=== PATIENT | female | born 1945 | race Caucasian/White ===

== ENCOUNTER 2017-02-10 12:27 | Outpatient (CLI) | payer MEDICARE, OTHER ==
[~2017-02-10] VITALS: Ht 162.6 cm; Wt 81.2 kg
[~2017-02-10 12:27] MED LIST: BNZ40T PO; CALC-250 PO; FURO-125 PO; GLIM2TAB PO; IPRA4AER IH; LEVO112T55 PO; METO-387 PO; POTA10CA43 PO; PRAV20TA3 PO; SERT50TA2 PO
== END 2017-02-10 12:30 ==
LOC: PREOP 12:27
PROVIDERS: ATTEND Otolaryngology Otolaryngology/Facial Plastic Surgery
DX: Z01.818 Encounter for other preprocedural examination (principal); K13.0 Diseases of lips

== ENCOUNTER 2017-02-13 05:54 | Day surgery (SDC) | payer MEDICARE, OTHER ==
[~2017-02-13] VITALS: Ht 162.6 cm; Wt 81.2 kg
[~2017-02-13 05:54] MED LIST changes: +METO-270 PO; -METO-387 PO
--- OUTSIDE RECORDS SUMMARY | 2017-02-13 05:57 | XMS REPORT ---
Author Author MARGARITA BAIRD Organization [employer] Address Unknown Phone Unavailable Care Team Providers Care Extruding Department Supervisor Name Role Phone MARGARITA BAIRD CP Unavailable Allergies No Known Allergies Problems Problem Type Condition ICD-9 Code Onset Dates Condition Status Assessment Dental examination V72.2 Active Medications No Known Medications Procedures Procedure Coding System Code Date Billing Notes on claim CPT-4 EC109 October 20, 2014 Results No Known Results Summary Purpose [employer] Submission
[2017-02-13] MEDS ORDERED: LACTATED RINGERS 1,000 ML IV PRN (06:15)
[2017-02-13] MEDS ORDERED: FAMOTIDINE 20MG/2ML IV (PEPCID) IV ONE (06:15)
[2017-02-13] MEDS ORDERED: ONDANSETRON 4 MG/2 ML (SDV) Z0FRAN IV ONE (06:15)
[2017-02-13] MEDS ORDERED: RT-ALBUTEROL SULF 2.5 MG/3 ML PRE-MIX VIAL INH ONE (06:15)
[2017-02-13] MEDS ORDERED: SCOPOLAMINE 1.5 MG (TRANSDERM-SCOP) PATCH TOP ONE (06:15)
[2017-02-13 06:20] VITALS: BP 158/74
--- NOTE | 2017-02-13 06:51 | Progress Note-Pre Operative ---
Pre-Operative Progress Note H&P Reviewed The H&P was reviewed, patient examined and no changes noted. Date Seen by Provider: Feb 13, 2017 Time Seen by Provider: 06:45 Date H&P Reviewed: Feb 13, 2017 Time H&P Reviewed: 06:45 Pre-Operative Diagnosis: Upeer And Lower Lip Lesions ADEBAYO HINOJOSA MD Feb 13, 2017 6:51 am
[2017-02-13] MEDS ORDERED: MUPIROCIN 2% OINT 22 GM (BACTROBAN) TUBE ONE (06:58)
[2017-02-13] MEDS ORDERED: LIDOCAINE/EPI 1%-1:200,000 (XYLOCAINE) 30 ML VIAL ONE (06:58)
[2017-02-13] MEDS ORDERED: MIDAZOLAM 2 MG/2 ML (VERSED) VIAL ONE (07:03)
[2017-02-13] MEDS ORDERED: SEVOFLURANE (ULTANE) 15 ML INHAL SOLN ONE ×3 (07:03→08:18)
[2017-02-13] MEDS ORDERED: LIDOCAINE PF 2% 5 ML (XYLOCAINE) VIAL ONE (07:03)
[2017-02-13] MEDS ORDERED: fentaNYL INJECTION 100 MCG/2 ML AMP ONE (07:03)
[2017-02-13] MEDS ORDERED: DEXAMETHASONE 10 MG/ML (DECADRON) 1 ML VIAL ONE (07:03)
[2017-02-13] MEDS ORDERED: ONDANSETRON 4 MG/2 ML (SDV) Z0FRAN ONE (07:03)
[2017-02-13] MEDS ORDERED: proPOfol 200 MG/20 ML (DIPRIVAN) VIAL IV ONE (07:03)
[2017-02-13] MEDS ORDERED: LACTATED RINGERS 1,000 ML IV ONE (07:03)
--- NOTE | 2017-02-13 08:17 | Progress Note-Post Operative ---
Post-Operative Progess Note Surgeon (s)/Foreclosure Home Inspector (s) Surgeon ADEBAYO HINOJOSA MD Foreclosure Home Inspector n/a Pre-Operative Diagnosis Upeer And Lower Lip Lesions Post-Operative Diagnosis same Post-Op Procedure Note Date of Procedure: Feb 13, 2017 Name of Procedure Performed: Excsions of Multiple Lip Lesions Description & Findings Description and Findings: n/a Anesthesia Type less than 25cc Estimated Blood Loss minimal Packing none. Specimen(s) collected/removed upper lip-basal cell lower lip early squamous cell all margins clear on frozen section ADEBAYO HINOJOSA MD Feb 13, 2017 8:17 am
[2017-02-13] MEDS ORDERED: ONDANSETRON 4 MG/2 ML (SDV) Z0FRAN IVP PRN (08:30)
[2017-02-13] MEDS ORDERED: morphine INJ 10 MG/ML 1ML (SYR OR VIAL) IVP PRN (08:30)
[2017-02-13] MEDS ORDERED: ACETAMINOPHEN 325 MG TABLET/CAPLET (TYLENOL) PO PRN (08:30)
[2017-02-13 09:10] VITALS: BP 122/58
[2017-02-13 09:40] VITALS: BP 121/58
[2017-02-13] MEDS ORDERED: TRAM50TA2 PO (09:43)
[2017-02-13 10:10] VITALS: BP 147/67
== END 2017-02-13 10:14 | disposition home or self-care (01) ==
LOC: SDC 05:54
PROVIDERS: ATTEND Otolaryngology Otolaryngology/Facial Plastic Surgery
DX: C44.01 Basal cell carcinoma of skin of lip (principal); C44.02 Squamous cell carcinoma of skin of lip; L85.9 Epidermal thickening, unspecified; I10 Essential (primary) hypertension; J44.9 Chronic obstructive pulmonary disease, unspecified; J45.909 Unspecified asthma, uncomplicated; G47.33 Obstructive sleep apnea (adult) (pediatric); F41.9 Anxiety disorder, unspecified; F32.9 Major depressive disorder, single episode, unspecified; Q61.3 Polycystic kidney, unspecified; Z79.899 Other long term (current) drug therapy
CPT/HCPCS: 87081; 88305; 88331; 88332; 93005; 94640

== ENCOUNTER 2018-10-19 10:30 | Outpatient (CLI) | payer MEDICARE, OTHER ==
[~2018-10-19] VITALS: Ht 162.6 cm; Wt 81.2 kg
[~2018-10-19 10:30] MED LIST changes: +BENA40TA5 PO; -BNZ40T PO; -METO-270 PO; +METO-387 PO; +TRAM50TA2 PO
== END 2018-10-19 10:55 | disposition home or self-care (01) ==
LOC: PREOP 10:30
PROVIDERS: ATTEND Surgery
DX: Z01.818 Encounter for other preprocedural examination (principal)

== ENCOUNTER 2018-10-21 08:03 | Day surgery (SDC) | payer MEDICARE, OTHER ==
[~2018-10-21] VITALS: Ht 162.6 cm; Wt 81.2 kg
[2018-10-21] MEDS ORDERED: NS IV 500 ML 500 ML IV PRN (08:44)
[2018-10-21] MEDS ORDERED: MIDAZOLAM 2 MG/2 ML (VERSED) VIAL IVP ONE (08:45)
[2018-10-21] MEDS ORDERED: fentaNYL INJECTION 100 MCG/2 ML AMP IVP ONE (08:45)
[2018-10-21] MEDS ORDERED: LIDOCAINE JELLY 2% 6 ML SYRINGE MM PRN (08:45)
[2018-10-21] MEDS ORDERED: NS IV 500 ML 500 ML ONE (08:46)
[2018-10-21 09:12] VITALS: BP 157/69
[2018-10-21] MEDS ORDERED: SCOPOLAMINE 1.5 MG (TRANSDERM-SCOP) PATCH ONE (09:17)
[2018-10-21] MEDS ORDERED: SCOPOLAMINE 1.5 MG (TRANSDERM-SCOP) PATCH TD ONE (09:30)
[2018-10-21] MEDS ORDERED: MIDAZOLAM 2 MG/2 ML (VERSED) VIAL ONE ×4 (10:05)
[2018-10-21] MEDS ORDERED: fentaNYL INJECTION 100 MCG/2 ML AMP ONE (10:05)
[2018-10-21] MEDS ORDERED: LIDOCAINE JELLY 2% 6 ML SYRINGE ONE (10:05)
--- NOTE | 2018-10-21 10:12 | Conscious Sedation/ASA ---
Conscious Sedation Pre-Proced Time 09:30 ASA Score 2 For ASA 3 and 4: Consider anesthesia and medical clearance. Also, for patients with a history of failed moderate sedation consider anesthesia. Airway Lungs Heart ASA score ASA 1: a normal healthy patient ASA 2: a patient with a mild systemic disease (mid diabetes, controlled hypertension, obesity ASA 3: a patient with a severe systemic disease that limits activity (angina , COPD, prior Myocardial infarction) ASA 4: a patient with an incapacitating disease that is a constant threat to life (CHF, renal failure) ASA 5: a moribund patient not expected to survive 24 hrs. (ruptured aneurysm) ASA 6: a declared brain- patient whose organs are being harvested. For emergent operations, add the letter E after the classification Mallampati Classification Grade 2 Sedation Plan Analgesia, Amnesia, Plan communicated to team members, Discussed options with patient/fam, Discussed risks with patient/fam The patient is an appropriate candidate to undergo the planned procedure, sedation, and anesthesia. The patient immediately re-assessed prior to indication. ANTHONY CARIAS MD October 21, 2018 10:12
--- NOTE | 2018-10-21 10:13 | Progress Note-Pre Operative ---
Pre-Operative Progress Note H&P Reviewed The H&P was reviewed, patient examined and no changes noted. Date Seen by Provider: October 21, 2018 Time Seen by Provider: : Date H&P Reviewed: October 21, 2018 Time H&P Reviewed: : Pre-Operative Diagnosis: rectal bleed, family hx colon ca ANTHONY CARIAS MD October 21, 2018 10:13
[2018-10-21] MEDS ORDERED: HYDROcodone/APAP 5 MG/325 MG (LORTAB) TAB PO PRN (10:15)
[2018-10-21] MEDS ORDERED: morphine INJ 10 MG/ML 1ML (SYR OR VIAL) IV PRN (10:15)
[2018-10-21] MEDS ORDERED: ONDANSETRON 4 MG/2 ML (SDV) Z0FRAN IV PRN (10:15)
[2018-10-21] MEDS ORDERED: ACETAMINOPHEN 325 MG TABLET PO PRN (10:15)
--- NOTE | 2018-10-21 10:16 | Discharge Inst-Surgical ---
D/C Lap Instructions-JV Follow Up 5yrs Activity as tolerated Regular Diet Symptoms to Report: Fever over 101 degree F, Nausea/Vomiting Infection Signs and Symptoms to report: Increased redness, Foul odor of wound, Increased drainage Bathing instructions: May shower Operative Area Clean/Dry; Keep incision clean/dry If any problems/questions: Contact your physician or go to Emergency Room ANTHONY CARIAS MD October 21, 2018 10:16
[2018-10-21 11:00] VITALS: BP 148/68
--- OUTSIDE RECORDS SUMMARY | 2018-10-21 11:03 | XMS REPORT | Continuity of Care Document ---
Author Organization Unknown Address Unknown Allergies Active Description Code Type Severity Reaction Onset Reported/Identified Relationship to Patient Clinical Status Yes CODEINE SULFATE UNKNOWN UNKNOWN Yes CONTRAST DYES UNKNOWN UNKNOWN Yes SULFA (SULFONAMIDE ANTIBIOTICS) UNKNOWN UNKNOWN Yes codeine [id number] Drug Allergy Moderate GI UPSET 02/10/2017 Yes Sulfa (Sulfonamide Antibiotics) [id number] Drug Allergy Moderate A CHILD 02/10/2017 Yes Tetanus Vaccines and Toxoid [id number] Drug Allergy Moderate SWELLING Medications There is no data. 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 02/13/2017 ADEBAYO HINOJOSA MD Ot 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 02/13/2017 ADEBAYO HINOJOSA MD Ot F32.9 MAJOR DEPRESSIVE DISORDER, SINGLE EPISOD 02/13/2017 ADEBAYO HINOJOSA MD Ot F41.9 ANXIETY DISORDER, UNSPECIFIED 02/13/2017 ADEBAYO HINOJOSA MD Ot G47.33 OBSTRUCTIVE SLEEP APNEA (ADULT) (PEDIATR 02/13/2017 ADEBAYO HINOJOSA MD Ot I10 ESSENTIAL (PRIMARY) HYPERTENSION 02/13/2017 ADEBAYO HINOJOSA MD Ot J44.9 CHRONIC OBSTRUCTIVE PULMONARY DISEASE, U 02/13/2017 ADEBAYO HINOJOSA MD, Ot J45.909 UNSPECIFIED ASTHMA, UNCOMPLICATED 02/13/2017 ADEBAYO HINOJOSA MD, Ot L85.9 EPIDERMAL THICKENING, UNSPECIFIED 02/13/2017 ADEBAYO HINOJOSA MD, Ot Q61.3 POLYCYSTIC KIDNEY, UNSPECIFIED 02/13/2017 ADEBAYO HINOJOSA MD, Ot Z79.899 OTHER SENIOR CARE (CURRENT) DRUG THERAPY 02/18/2017 ADEBAYO HINOJOSA MD, Ot C44.01 BASAL CELL CARCINOMA OF SKIN OF LIP 02/18/2017 ADEBAYO HINOJOSA MD, Ot 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 02/18/2017 ADEBAYO HINOJOSA MD Ot F32.9 MAJOR DEPRESSIVE DISORDER, SINGLE EPISOD 02/18/2017 ADEBAYO HINOJOSA MD, Ot F41.9 ANXIETY DISORDER, UNSPECIFIED 02/18/2017 ADEBAYO HINOJOSA MD, Ot G47.33 OBSTRUCTIVE SLEEP APNEA (ADULT) (PEDIATR 02/18/2017 ADEBAYO HINOJOSA MD Ot I10 ESSENTIAL (PRIMARY) HYPERTENSION 02/18/2017 ADEBAYO HINOJOSA MD, Ot J44.9 CHRONIC OBSTRUCTIVE PULMONARY DISEASE, U 02/18/2017 ADEBAYO HINOJOSA MD, Ot J45.909 UNSPECIFIED ASTHMA, UNCOMPLICATED 02/18/2017 ADEBAYO HINOJOSA MD, Ot L85.9 EPIDERMAL THICKENING, UNSPECIFIED 02/18/2017 ADEBAYO HINOJOSA MD, Ot Q61.3 POLYCYSTIC KIDNEY, UNSPECIFIED 02/18/2017 ADEBAYO HINOJOSA MD, Ot Z79.899 OTHER SENIOR CARE (CURRENT) DRUG THERAPY Procedures There is no data. Results Test Result Range Thyroid Stimulating Hormone - 09/25/16 09:29 TSH 0.29 mIU/mL 0.32-5.00 Methicillin resistant Staphylococcus aureus (MRSA) screening culture - 06:10 Methicillin resistant Staphylococcus aureus (MRSA) screening culture [facility] Surgical Pathology - 12/02/17 10:30 Surg Path Sent to [facility] Encounters ACCT No. Visit Date/Time Discharge Status Pt. Type Provider Facility Loc./Unit Complaint [id number] 02/13/2017 05:54:00 02/13/2017 10:14:00 DIS Outpatient ADEBAYO HINOJOSA MD [facility] LIP LESIONS [id number] 02/07/2017 05:29:00 02/07/2017 23:59:59 CLS Outpatient ADEBAYO HINOJOSA MD [facility] PREOP LIP LESIONS [id number] 12/09/2013 19:46:00 12/10/2013 07:00:00 DIS Outpatient CORNELIO MONTES APRN [facility] SLEEP GUERO [id number] 10/21/2018 10:30:00 PEN Preadmit JV QUARLES, ANTHONY [facility] ENDO FAMILY HX COLON CA/RECTAL BLEEDING [id number] 08/19/2012 12:54:00 Document Registration [id number] 12/02/2017 17:09:00 12/02/2017 23:59:00 DIS Outpatient Tony Holcomb [id number] 09/25/2016 09:16:00 09/25/2016 23:59:00 DIS Outpatient Tony Holcomb
[2018-10-21 11:30] VITALS: BP 144/76
[2018-10-21 11:41] VITALS: BP 144/76
--- NOTE | 2018-10-21 12:16 | Progress Note-Post Operative ---
Post-Operative Progess Note Surgeon (s)/Oracle Forms Developer (s) Surgeon ANTHONY CARIAS MD [employer] Forms Developer: none Pre-Operative Diagnosis rectal bleed, family hx colon ca Post-Operative Diagnosis cnronic stage 2-3 ext and int hemorrhoids, mod-severe sigmoid diverticulosis, sigmoid polyp. Procedure & Operative Findings Date of Procedure 10/21/18 Procedure Performed/Findings Colonoscopy with snare polypectomy Anesthesia Type cs Estimated Blood Loss Estimated blood loss (mL): minimal Specimens/Packing Specimens Removed sigmoid polyp ANTHONY CARIAS MD October 21, 2018 12:16
--- NOTE | 2018-10-21 17:30 | OPERATIVE REPORT ---
DATE OF SERVICE: 10/21/2018 ATTENDING PRIMARY CARE PHYSICIAN: Dr. Holcomb. PREOPERATIVE DIAGNOSES: Rectal bleed, history of colon polyp, family history of colon cancer. POSTOPERATIVE DIAGNOSES: Acute on chronic stage between stage II and III external and internal hemorrhoids with induced mild bleeding of the internal hemorrhoid cushion after a digital rectal examination. Moderate sigmoid diverticulosis, polyp of the sigmoid colon. PROCEDURE: Colonoscopy with snare polypectomy. SURGEON: Anthony Schilling MD ANESTHESIA: Conscious sedation. ESTIMATED BLOOD LOSS: Minimal. FINDINGS: Acute on chronic between stage II and III external and internal hemorrhoids with induced mild bleeding of the internal hemorrhoid cushion after a digital rectal examination. Moderate sigmoid diverticulosis, polyp of the sigmoid colon. DISPOSITION: The patient tolerated the procedure well. INDICATIONS: The patient is a 73-year-old female known to us. She was initially seen in 2013 for a followup colonoscopy for history of colon polyps as well as family history of colon cancer. At that time, she was found to have between stage II and III external and internal hemorrhoids as well as a moderate sigmoid diverticulosis and several polyps identified, which came back as tubular adenomas as well as hyperplastic polyp. We then seen her again in 2015 after an episode of diverticulitis with no malignancy identified. She states that she has had blood per rectum in the past several months. She does have a family history of colon cancer with her mother having the disease. DESCRIPTION OF PROCEDURE: The patient was brought to the endoscopy suite, laid in the left lateral decubitus position. After adequate IV pain and sedative medications and conscious sedation anesthesia, a digital rectal examination was performed. Chronic between stage II and III external and internal hemorrhoids were identified with acute on chronic inflammation of the internal hemorrhoidal cushion and induced bleeding with the digital rectal examination; however, very mild. No palpable masses. The endoscope was then intubated to the anus and rectum was gently insufflated. The endoscope was then advanced to the valves of Grover of the rectum with no polyps or any neoplasms identified. In the sigmoid colon, a moderate to severe sigmoid diverticulosis was identified. There were no mucosal inflammatory changes to indicate any active diverticulitis. A pedunculated polyp was identified of the sigmoid colon, which was approximately 3 mm in size. This was excised using a snare and electrocautery with visualization of good hemostasis. The endoscope was then advanced to the remainder of the descending, transverse and ascending colon to cecum. These segments were normal. No other lesions were identified. The endoscope was then slowly withdrawn while taking a second look and suctioning of residual air with no additional findings. The patient tolerated the procedure well. We will recommend continued medical management with a high fiber diet with at least 30 grams of fiber per day, if not more as well as significant amounts of water to promote soft stools on a daily basis as well as sitz baths after bowel movements. We will await the biopsy results and if this is a tubular adenoma or hyperplastic polyp, she may wait another 5 years for next colonoscopy. However, if there is any villous component, we will have her follow up in approximately 3 years. Job ID: [id number] DocumentID: [id number] Dictated Date: 10/21/2018 10:52:33 Chuck Wagon Driver Date: 10/21/2018 17:29:50 Dictated By: ANTHONY SCHILLING MD
== END 2018-10-21 11:35 | disposition home or self-care (01) ==
LOC: ENDO 08:03
PROVIDERS: ATTEND Surgery
DX: D12.5 Benign neoplasm of sigmoid colon (principal); K64.2 Third degree hemorrhoids; K57.30 Diverticulosis of large intestine without perforation or abscess without bleeding; Z87.19 Personal history of other diseases of the digestive system; Z86.010 Personal history of colon polyps; Z80.0 Family history of malignant neoplasm of digestive organs; I10 Essential (primary) hypertension; E11.9 Type 2 diabetes mellitus without complications; E03.9 Hypothyroidism, unspecified; D50.9 Iron deficiency anemia, unspecified; Q61.3 Polycystic kidney, unspecified; Z79.84 Long term (current) use of oral hypoglycemic drugs; Z79.899 Other long term (current) drug therapy; Z87.891 Personal history of nicotine dependence; Z80.42 Family history of malignant neoplasm of prostate